=== PATIENT | male | born 1940 | race African-American/Black ===

== ENCOUNTER → 2018-04-22 | Outpatient (CLI) | payer MEDICARE | END | disposition home or self-care (01) | LOC: EDBD 13:37 → RAD 13:37 | PROVIDERS: ATTEND Family Medicine | DX: N13.2 Hydronephrosis with renal and ureteral calculous obstruction (principal); K40.90 Unilateral inguinal hernia, without obstruction or gangrene, not specified as recurrent | CPT/HCPCS: 74176 ==

== ENCOUNTER 2018-05-28 10:44 | Day surgery (SDC) | payer MEDICARE ==
[2018-05-25 09:17] LABS: ALBUMIN 3.6 g/dL (3.4-5.0); ANION GAP 10 mmol/L (5-15); CALCIUM 10.3 mg/dL (8.5-10.1); CHLORIDE 106 mmol/L (98-107)
[2018-05-25 09:21] LABS: ALANINE AMINOTRANSFERASE 18 U/L (12-78); ALKALINE PHOSPHATASE 85 U/L (45-117); BILIRUBIN,TOTAL 0.3 mg/dL (0.2-1.0); CREATININE 1.68 mg/dL (0.7-1.3)
[~2018-05-28] VITALS: Ht 170.2 cm; Wt 101.5 kg
[~2018-05-28 10:44] MED LIST: ACET325T14 PO; CETI10CA PO; CHOL200024 PO; DOCU-131 PO; FURO20TA3 PO; GABA100C PO; INSU100I17 SQ-INSULIN; INSU100I32 SQ-INSULIN; LOSA50TA7 PO; METF10007 PO; ROSU20TA PO; TAMS0.4C2 PO; TEST75GE TP
[2018-05-28 11:30] VITALS: BP 136/75
[2018-05-28] MEDS ORDERED: LACTATED RINGERS 1,000 ML IV SCH (11:37)
[2018-05-28] MEDS ORDERED: ONDANSETRON 2MG/ML, 2ML ONE (14:10)
[2018-05-28] MEDS ORDERED: METOCLOPRAMIDE 5 MG/ML, 2ML ONE (14:10)
[2018-05-28] MEDS ORDERED: DEXAMETHASONE 4 MG/ML, 1ML ONE (14:10)
[2018-05-28] MEDS ORDERED: PROPOFOL 10 MG/ML, 20ML ONE (14:10)
[2018-05-28] MEDS ORDERED: FENTANYL PF 100 MCG/2ML ONE ×2 (14:14→15:03)
[2018-05-28] MEDS ORDERED: MIDAZOLAM 1 MG/ML, 2ML ONE (14:14)
[2018-05-28] MEDS ORDERED: OMNIPAQUE 350 MG/ML, 50 ML BOTTLE IV ONE (15:40)
[2018-05-28] MEDS ORDERED: LABETALOL 20 MG/4 ML ONE (16:02)
[2018-05-28] MEDS ORDERED: OXYcodone 5 MG/5 ML ORAL.SOL UDC ONE (16:02)
[2018-05-28] MEDS ORDERED: LABETALOL 5MG/ML, 20ML IV PRN (16:30)
[2018-05-28] MEDS ORDERED: MIDAZOLAM 1 MG/ML, 2ML IV PRN (16:30)
[2018-05-28] MEDS ORDERED: HYDROmorphone 1 MG/ML, 1ML IV PRN (16:30)
[2018-05-28] MEDS ORDERED: ONDANSETRON 2MG/ML, 2ML IVPush PRN (16:30)
[2018-05-28] MEDS ORDERED: OXYcodone 5 MG/5 ML ORAL.SOL UDC PO PRN (16:30)
[2018-05-28] MEDS ORDERED: MEPERIDINE/PF 25MG/0.5ML IVPush PRN (16:30)
[2018-05-28] MEDS ORDERED: FENTANYL PF 100 MCG/2ML IV PRN (16:30)
== END 2018-05-28 17:50 | disposition home or self-care (01) ==
LOC: OUT 10:44
PROVIDERS: ATTEND Urology
DX: N20.0 Calculus of kidney (principal); I10 Essential (primary) hypertension; E78.5 Hyperlipidemia, unspecified; E11.9 Type 2 diabetes mellitus without complications; Z79.4 Long term (current) use of insulin
CPT/HCPCS: 36415; 52356; 74420; 80053; 82962; 88300; 93005; C1758; C1769; C2617; J1100; J2250; J2405; J2704; J2765; J3010; J7120; Q9967; 82360

== ENCOUNTER 2019-12-08 07:57 | Outpatient (CLI) | payer MEDICARE ==
[~2019-12-08 07:57] MED LIST changes: +LOSA50TA14 PO; -LOSA50TA7 PO; -ROSU20TA PO; +ROSU20TA2 PO
[2019-12-08] MEDS ORDERED: REGADENOSON 0.4 MG/5 ML SYRINGE ONE (12:00)
== END 2019-12-08 23:59 | disposition home or self-care (01) ==
LOC: CFH 07:57
PROVIDERS: ATTEND Internal Medicine Cardiovascular Disease
DX: I25.10 Atherosclerotic heart disease of native coronary artery without angina pectoris (principal); I10 Essential (primary) hypertension
CPT/HCPCS: 78452; 93017; A9502; J2785